=== PATIENT | female | born 1955 | race Caucasian/White ===

== ENCOUNTER 2017-01-21 10:24 | Emergency (ER) | payer BC ==
[~2017-01-21] VITALS: Ht 165.1 cm; Wt 71.5 kg
[2017-01-21] MEDS ORDERED: FLEXERIL10 MG PO (12:58)
[2017-01-21 13:11] VITALS: BP 102/81
== END 2017-01-21 13:13 | disposition home or self-care (01) ==
LOC: EME 10:24
DX: M79.662 Pain in left lower leg (principal)
CPT/HCPCS: 93971; 99281; 99283